=== PATIENT | male | born 1950 ===

== ENCOUNTER 2017-12-17 20:30 | Outpatient (CLI) | payer MEDICARE, OTHER | END 2017-12-17 20:31 | disposition home or self-care (01) | LOC: SLEEPLAB 20:30 | PROVIDERS: ATTEND Internal Medicine Pulmonary Disease | DX: G47.33 Obstructive sleep apnea (adult) (pediatric) (principal); R06.83 Snoring; F32.9 Major depressive disorder, single episode, unspecified; I21.9 Acute myocardial infarction, unspecified; I51.89 Other ill-defined heart diseases; G47.61 Periodic limb movement disorder | CPT/HCPCS: 95810 ==

== ENCOUNTER 2018-01-20 20:30 | Outpatient (CLI) | payer MEDICARE, OTHER | END 2018-01-20 20:31 | disposition home or self-care (01) | LOC: SLEEPLAB 20:30 | PROVIDERS: ATTEND Internal Medicine Pulmonary Disease | DX: G47.33 Obstructive sleep apnea (adult) (pediatric) (principal); R53.83 Other fatigue; R40.0 Somnolence; F32.9 Major depressive disorder, single episode, unspecified; R06.83 Snoring; I21.9 Acute myocardial infarction, unspecified; E66.9 Obesity, unspecified; Z68.28 Body mass index [BMI] 28.0-28.9, adult | CPT/HCPCS: 95811 ==